=== PATIENT | female | born 1990 | race Caucasian/White ===

== ENCOUNTER 2018-11-15 06:37 | Inpatient (IN) | payer MEDICAID ==
[~2018-11-15] VITALS: Ht 157.5 cm; Wt 102.0 kg
[2018-11-15 06:54] VITALS: Ht 157.5 cm; Wt 102.0 kg
[2018-11-15 06:55] VITALS: BP 119/65; PULSE 78; RESP 20
--- NOTE | 2018-11-15 07:13 | TRIAGE ---
OB Triage Datetime Report Generated by CPN: 11/15/2018 07:13 Datetime: 11/15/2018 07:00 Time of Arrival: 11/15/2018 06:40 EGA: 39.0 Arrived By: Ambulatory Arrived From: Home Chief Complaint: UCS AT HOME SINCE 0500 Movement: Present Contractions: Regular Contractions: 3-5 Vaginal Bleeding: None Time Provider Notified: 11/15/2018 07:00 Provider Notified: DR ROSALES Initial Plan: EFM,CALL DR SALCEDA Datetime: 11/15/2018 06:59 Maternal Assessment Level of Consciousness: Keenly Alert, Responsive DTR's/Clonus: DTRs 2+; No Clonus Headache: Denies Blurred Vision: No Respiratory Effort: Unlabored; Regular Rhythm; Equal Expansion Breath Sounds, Left: Clear and Equal Breath Sounds, Right: Clear and Equal Nausea/Vomiting: Denies RUQ Epigastric Pain: Denies Facial Edema: None Temperature Route: Axillary Fall Risk Assessment History of Falling: (0) No Secondary Diagnosis: (0) No Ambulatory Aid: (0) Bedrest/Nurse Assist IV Therapy: (0) No Gait: (0) Normal/Bedrest/Immobile Mental Status: (0) Oriented to Own Ability Fall Score: 0 Fall Risk Score Definition: No Risk: No action required Datetime: 11/15/2018 06:57 Maternal Assessment Level of Consciousness: Keenly Alert, Responsive DTR's/Clonus: DTRs 2+ Headache: Denies Blurred Vision: No Nausea/Vomiting: Denies Facial Edema: None Labor Evaluation Frequency: 3-5 Monitor Mode: External Quality: Mild Pattern: Normal: <= 5 Contractions in 10 Minutes Resting Tone [place]: Relaxed Heart Rate FHR Baseline Rate: 125 Monitor Mode: External US FHR Baseline Changes: No Baseline Change Variability: Moderate 6-25 bpm Accelerations: 10X10 Decelerations: None Category: Category I Pain Assessment Pain Scale: 6 Pain Presence: Intermittent Pain Type: Contraction Pain Location: Abdomen Vaginal Exam Dilatation (cms): 4.5 Effacement (%): 80 Station: -2 Exam By: ZULEIKA LAU Membrane Status: Intact Vaginal Bleeding: None Cervix, Consistency: Soft Cervix, Position: Midposition Presentation 'A': Cephalic Datetime: 11/11/2018 20:30 Labor Evaluation Frequency: 2-7 Monitor Mode: External Duration (sec)2399: 30-60 Quality: Mild Pattern: Normal: <= 5 Contractions in 10 Minutes Resting Tone [place]: Relaxed Heart Rate FHR Baseline Rate: 150 Monitor Mode: External US FHR Baseline Changes: No Baseline Change Variability: Moderate 6-25 bpm Accelerations: 15X15 Decelerations: None Category: Category I Datetime: 11/11/2018 19:29 Contraction Comments: NO CONTRACTIONS Comments: OFF THE MONITOR Datetime: 11/11/2018 19:13 Assessment Type: Ongoing Assessment Maternal Assessment Level of Consciousness: Keenly Alert, Responsive DTR's/Clonus: DTRs 2+; No Clonus Headache: Denies Blurred Vision: No Respiratory Effort: Unlabored; Regular Rhythm; Equal Expansion Breath Sounds, Left: Clear and Equal Breath Sounds, Right: Clear and Equal Nausea/Vomiting: Denies RUQ Epigastric Pain: Denies Facial Edema: None Fall Risk Assessment History of Falling: (0) No Secondary Diagnosis: (0) No Ambulatory Aid: (0) Bedrest/Nurse Assist IV Therapy: (0) No Gait: (0) Normal/Bedrest/Immobile Mental Status: (0) Oriented to Own Ability Fall Score: 0 Fall Risk Score Definition: No Risk: No action required Datetime: 11/11/2018 18:53 Heart Rate FHR Baseline Rate: 135 Monitor Mode: External US Variability: Moderate 6-25 bpm Accelerations: 15X15 Decelerations: None Category: Category I Datetime: 11/11/2018 18:39 Pain Assessment Pain Scale: 6 Pain Presence: Intermittent Pain Type: Contraction Pain Location: Abdomen; Back Pain Relief Measures: Comfort Measures Datetime: 11/11/2018 18:38 Stage of : Labor Datetime: 11/11/2018 18:24 Labor Evaluation Frequency: 2 Monitor Mode: External Duration (sec)2399: 60-70 Quality: Moderate Resting Tone [place]: Relaxed Heart Rate FHR Baseline Rate: 135 Monitor Mode: External US Variability: Moderate 6-25 bpm Accelerations: 15X15 Decelerations: None Category: Category I Datetime: 11/11/2018 18:10 Vaginal Exam Dilatation (cms): 2.0 Effacement (%): 40 Station: -3 Exam By: MSalazar RN Datetime: 11/11/2018 18:09 Pain Assessment Pain Scale: 6 Pain Presence: Intermittent Pain Type: Cramping; Contraction Pain Location: Abdomen; Back Pain Relief Measures: Comfort Measures Datetime: 11/11/2018 18:00 Labor Evaluation Frequency: 1-3 Monitor Mode: External Duration (sec)2399: 60-70 Quality: Moderate Resting Tone [place]: Relaxed Heart Rate FHR Baseline Rate: 135 Variability: Moderate 6-25 bpm Accelerations: 15X15 Decelerations: None Category: Category I Datetime: 11/11/2018 17:39 Pain Assessment Pain Scale: 6 Pain Presence: Intermittent Pain Type: Cramping Pain Location: Abdomen Pain Goal: 3 Pain Relief Measures: Comfort Measures Datetime: 11/11/2018 17:30 Labor Evaluation Frequency: 2-4 Monitor Mode: External Duration (sec)2399: 50-70 Quality: Moderate Resting Tone [place]: Relaxed Heart Rate FHR Baseline Rate: 135 Monitor Mode: External US Variability: Moderate 6-25 bpm Accelerations: 15X15 Decelerations: None Category: Category I Datetime: 11/11/2018 17:00 Labor Evaluation Frequency: 2-4 Monitor Mode: External Duration (sec)2399: 60-90 Quality: Mild Resting Tone [place]: Relaxed Heart Rate FHR Baseline Rate: 135 Monitor Mode: External US Variability: Moderate 6-25 bpm Accelerations: 15X15 Decelerations: None Category: Category I Datetime: 11/11/2018 16:46 Maternal Assessment Level of Consciousness: Keenly Alert, Responsive Datetime: 11/11/2018 16:45 Pain Assessment Pain Scale: 0 Pain Presence: None/Denies Pain Goal: 3 Datetime: 11/11/2018 16:09 Pain Assessment Pain Scale: 0 Pain Presence: None/Denies Pain Goal: 3 Datetime: 11/11/2018 16:00 Labor Evaluation Frequency: irregular Monitor Mode: External Duration (sec)2399: 60 Quality: Mild Resting Tone [place]: Relaxed Heart Rate FHR Baseline Rate: 125 Monitor Mode: External US Variability: Moderate 6-25 bpm Accelerations: 15X15 Decelerations: None Category: Category I Datetime: 11/11/2018 15:32 Maternal Assessment Level of Consciousness: Keenly Alert, Responsive Pain Assessment Pain Scale: 0 Pain Presence: None/Denies Pain Goal: 3 Datetime: 11/11/2018 15:30 Labor Evaluation Frequency: 3-4 Monitor Mode: External Duration (sec)2399: 30-60 Quality: Mild Resting Tone [place]: Relaxed Heart Rate FHR Baseline Rate: 135 Monitor Mode: External US Variability: Moderate 6-25 bpm Accelerations: 15X15 Decelerations: None Category: Category I Datetime: 11/11/2018 15:00 Labor Evaluation Frequency: 2-3 Monitor Mode: External Duration (sec)2399: 30-70 Quality: Mild Resting Tone [place]: Relaxed Heart Rate FHR Baseline Rate: 135 Monitor Mode: External US Variability: Moderate 6-25 bpm Accelerations: None Decelerations: None Category: Category I Datetime: 11/11/2018 12:46 Labor Evaluation Frequency: 1-4 Monitor Mode: External Duration (sec)2399: 50-90 Quality: Mild Pattern: Normal: <= 5 Contractions in 10 Minutes Resting Tone [place]: Relaxed Heart Rate FHR Baseline Rate: 140 Monitor Mode: External US FHR Baseline Changes: No Baseline Change Variability: Moderate 6-25 bpm Accelerations: 15X15 Decelerations: None Category: Category I Pain Presence: None/Denies Datetime: 11/11/2018 12:10 Time of Arrival: 11/11/2018 11:00 EGA: 38.3 Arrived By: Ambulatory Arrived From: OB Triage Datetime: 11/11/2018 11:35 Assessment Type: Admission Assessment Vaginal Bleeding: None Maternal Assessment Level of Consciousness: Keenly Alert, Responsive DTR's/Clonus: DTRs 2+; No Clonus Headache: Denies Blurred Vision: No Respiratory Effort: Unlabored; Regular Rhythm; Equal Expansion Breath Sounds, Left: Clear and Equal Breath Sounds, Right: Clear and Equal Nausea/Vomiting: Denies RUQ Epigastric Pain: Denies Lower Extremities Edema: Bilateral Lower Extremities Degree: 1+ Upper Extremities Edema: Bilateral Upper Extremities Degree: 1+ Facial Edema: None Fall Risk Assessment History of Falling: (0) No Secondary Diagnosis: (0) No Ambulatory Aid: (0) Bedrest/Nurse Assist IV Therapy: (20) Yes Gait: (0) Normal/Bedrest/Immobile Mental Status: (0) Oriented to Own Ability Fall Score: 20 Fall Risk Score Definition: No Risk: No action required Pain Assessment Pain Scale: 0 Pain Presence: None/Denies Membrane Status: Intact Datetime: 11/11/2018 11:15 Stage of : Labor Datetime: 11/11/2018 10:00 Stage of : OB Triage Maternal Assessment Level of Consciousness: Keenly Alert, Responsive DTR's/Clonus: DTRs 1+ Headache: Denies Breath Sounds, Left: Clear and Equal Breath Sounds, Right: Clear and Equal Nausea/Vomiting: Denies RUQ Epigastric Pain: Denies Labor Evaluation Frequency: 2-5 Monitor Mode: External Duration (sec)2399: 40-60 Quality: Mild Pattern: Normal: <= 5 Contractions in 10 Minutes Resting Tone [place]: Relaxed Heart Rate FHR Baseline Rate: 145 Monitor Mode: External US Variability: Moderate 6-25 bpm Accelerations: 15X15 Decelerations: None Category: Category I Pain Assessment Pain Scale: 5 Pain Presence: Intermittent Pain Type: Contraction Pain Location: Back Pain Goal: 3 Membrane Status: Intact Datetime: 11/11/2018 09:42 Stage of : OB Triage Maternal Assessment Level of Consciousness: Keenly Alert, Responsive DTR's/Clonus: DTRs 1+ Headache: Denies Breath Sounds, Left: Clear and Equal Breath Sounds, Right: Clear and Equal Nausea/Vomiting: Denies RUQ Epigastric Pain: Denies Labor Evaluation Frequency: 2-3 Monitor Mode: External Duration (sec)2399: 40-60 Resting Tone [place]: Relaxed Heart Rate FHR Baseline Rate: 150 Monitor Mode: External US Variability: Moderate 6-25 bpm Accelerations: 15X15 Decelerations: None Category: Category I Pain Assessment Pain Scale: 5 Pain Presence: Intermittent Pain Type: Contraction Pain Location: Back Pain Goal: 3 Membrane Status: Intact Datetime: 11/11/2018 09:24 Stage of : OB Triage Maternal Assessment Level of Consciousness: Keenly Alert, Responsive DTR's/Clonus: DTRs 1+ Headache: Denies Blurred Vision: No Respiratory Effort: Unlabored Breath Sounds, Left: Clear and Equal Breath Sounds, Right: Clear and Equal Nausea/Vomiting: Denies RUQ Epigastric Pain: Denies Facial Edema: None Monitor Mode: External Resting Tone [place]: Relaxed Heart Rate FHR Baseline Rate: 150 Monitor Mode: External US Variability: Moderate 6-25 bpm Accelerations: 10X10 Decelerations: None Category: Category I Pain Assessment Pain Scale: 5 Pain Presence: Intermittent Pain Type: Contraction Pain Location: Back Pain Goal: 3 Membrane Status: Intact Datetime: 11/11/2018 09:12 EGA: 38.3 Datetime: 11/11/2018 09:10 Vaginal Exam Dilatation (cms): 4.0 Effacement (%): 70 Station: -3 Exam By: JUDI SEARS Vaginal Bleeding: None Cervix, Consistency: Soft Cervix, Position: Midposition Presentation 'A': Cephalic
[2018-11-15] MEDS ORDERED: METHYLERGONOVINE 0.2 MG INJ IM PRN (07:30)
[2018-11-15] MEDS ORDERED: CARBOPROST 250 MCG INJ IM PRN (07:30)
[2018-11-15] MEDS ORDERED: LIDOCAINE 1% (MPF) 30 ML INJ INJ PRN (07:30)
[2018-11-15] MEDS ORDERED: OXYTOCIN 30 UNITS/LR 500 ML IV PRN (07:30)
[2018-11-15] MEDS ORDERED: MISOPROSTOL 200 MCG TAB PR PRN (07:30)
[2018-11-15] MEDS ORDERED: OXYTOCIN 30 UNITS/LR 500 ML IV SCH ×3 (07:30→18:30)
[2018-11-15] MEDS ORDERED: AMPICILLIN 2 GM/NS (PMX) 100 ML IV ONE (07:30)
[2018-11-15] MEDS ORDERED: BUTORPHANOL 2 MG INJ IV PRN ×2 (07:30)
[2018-11-15] MEDS ORDERED: IBUPROFEN 600 MG TAB PO PRN (07:30)
[2018-11-15] MEDS: LACTATED RINGER'S 1,000 ML IV SCH ×3 (08:13→23:13)
[2018-11-15] MEDS ORDERED: FENTAnyl 2MCG/ML-ROPIV 0.2% 100 ML ONE (11:30)
--- NOTE | 2018-11-15 12:52 | PREAC ---
Date/Time of Note Date/Time of Note DATE: 11/15/18 TIME: 12:50 Anesthesia Eval and Record Evaluation Time Pre-Procedure Interview DATE: 11/15/18 TIME: 10:39 Age 28 Sex female NPO: 8 hrs Preoperative diagnosis iup @ 39 wks., , labor Planned procedure gabi Past Medical History Past Medical History: Includes : : (2), Para: (1), Gestational age: (39 wks.) Surgery & Anesthesia Issues No known issue Meds Anticoagulation: No Beta Elpidio within 24 hr: No Reason Beta Elpidio not given: Pt. not on B-Elpidio No Active Prescriptions or Reported Meds Current Medications Lactated Ringer's 1,000 ml @ 125 mls/hr Q8H IV Last administered on 11/15/18at 10:58; Admin Dose 125 MLS/HR; Start 11/15/18 at 07:13 Ampicillin 50 ml @ 100 mls/hr Q4H IV ; Start 11/15/18 at 11:30 Butorphanol Tartrate (Stadol) 1 mg Q2H PRN IV .PAIN SCALE 1-5; Start 11/15/18 at 07:30 Butorphanol Tartrate (Stadol) 2 mg Q2H PRN IV .PAIN SCALE 6-10; Start 11/15/18 at 07:30 Lidocaine (Xylocaine 1% (Mpf)) 30 ml ONCE PRN INJ .EPISIOTOMY; Start 11/15/18 at 07:30 Oxytocin/Lactated Ringer's 500 ml @ 500 mls/hr ONCE POST IV ; Start 11/15/18 at 07:30 Oxytocin/Lactated Ringer's 500 ml @ 125 mls/hr POST IV ; Start 11/15/18 at 07:30 Ibuprofen (Motrin) 600 mg ONCE PRN PO .PAIN 1-5; Start 11/15/18 at 07:30 Oxytocin/Lactated Ringer's 500 ml @ 0 mls/hr ONCE PRN IV .VAGINAL BLEEDING; Start 11/15/18 at 07:30 Methylergonovine Maleate (Methergine) 0.2 mg ONCE PRN IM .VAGINAL BLEEDING; Start 11/15/18 at 07:30 Carboprost Tromethamine (Hemabate) 250 mcg ONCE PRN IM .VAGINAL BLEEDING; Start 11/15/18 at 07:30 Misoprostol (Cytotec) 1,000 mcg ONCE PRN [place] .VAGINAL BLEEDING; Start 11/15/18 at 07:30 Meds reviewed: Yes Allergies Coded Allergies: No Known Drug Allergies (Verified Allergy, Unknown, 11/11/18) Allergies Reviewed: Yes Labs/Studies Labs Reviewed: Reviewed by anesthesiologist Result Diagram: 11/15/18 0740 Laboratory Tests 11/15/18 07:40 Blood Bank Test 11/15/18 07:40 Antibody Screen NEGATIVE Blood Type O POSITIVE Rh Immune Globulin Candidate NO test: Positive Studies: ECG (n/a), CXR (n/a) Pre-procedure Exam Last vitals Vital Signs Date Temp Pulse Resp B/P (MAP) Pulse Ox O2 O2 Flow FiO2 Time Delivery Rate 11/15/18 97.8 78 20 119/65 Room Air 06:55 (83) Airway: Adequate mouth opening, Adequate thyromental dist Mallampati: Mallampati II Teeth: Normal Lung: Normal Heart: Normal ASA Physical Status ASA physical status: 2 Emergency: E Planned Anesthetic Neuraxial: Epidural Planned Pain Management Epidural, Parenteral pain med, Local by surgeon Pre-operative Attestations Prior to commencing anesthesia and surgery, the patient was re-evaluated, there was verification of: *The patient's identity *The results of appropriate recent lab work and preoperative vital signs *The above evaluation not changing prior to induction *Anesthetic plan, risk benefits, alternative and complications discussed with patient/family; questions answered; patient/family understands, accepts and wishes to proceed. Back Office Medical Assistant used JOSH JUDD MD Nov 15, 2018 12:52
[2018-11-15] MEDS ORDERED: FENTAnyl 2MCG/ML-ROPIV 0.2% 100 ML BAG EPI SCH (13:00)
[2018-11-15] MEDS ORDERED: DIPHENHYDRAMINE 50 MG INJ IV PRN (13:00)
[2018-11-15] MEDS ORDERED: NALOXONE (0.4 MG/ML) INJ IV PRN (13:00)
[2018-11-15] MEDS ORDERED: ONDANSETRON 4 MG INJ IV PRN (13:00)
[2018-11-15] MEDS ORDERED: NALBUPHINE HCL (10 MG/1 ML) INJ IV PRN (13:00)
[2018-11-15] MEDS: AMPICILLIN 1 GM/NS (PMX) 50 ML IV SCH ×2 (15:55→20:01)
[2018-11-16] MEDS: AMPICILLIN 1 GM/NS (PMX) 50 ML IV SCH (00:13)
--- NOTE | 2018-11-16 03:47 | LDN ---
Date/Time of Note Date/Time of Note DATE: 11/16/18 TIME: 03:44 Delivery Summary Vacuum assisted vaginal delivery over one contraction for prolonged heart deceleration. Delivered a viable baby girl weighing 2875 grams or 6# 5 oz, 18.5" long, and with Apgars of 7/9. Weeks of Gestation 39w 1d Assisted Vaginal Delivery: Vacuum Placenta Delivered: Spontaneously Meconium: none Episiotomy: No Perineal laceration: 0 Laceration repair: 1st degree left labial laceration repaired with 3-0 chromic. Anesthesia type: Epidural Estimated blood loss: 200 Sponge & Needle done & correct: Yes All needle counts correct: Yes Any foreign bodies felt in the: No (vagina) Delivery Information Sex Sex: female Apgars 1 Minute: 7 5 Minute: 9 Suctioning Nose & mouth suctioned at buddy: Yes Delee suction performed: No Umbilical Cord Umbilical cord with: 3 Vessels Cord presentations: no nuchal cord Cord Blood was obtained: Yes Mother & Baby Disposition Disposition Mom & Baby to Maternity; Good: Yes Baby to NICU: Yes (for observation ) IVAN MARTINEZ MD Nov 16, 2018 03:47
[2018-11-16] MEDS ORDERED: OXYTOCIN 30 UNITS/LR 500 ML IV SCH (03:54)
[2018-11-16] MEDS ORDERED: LACTATED RINGER'S 1,000 ML IV* SCH (03:54)
--- NOTE | 2018-11-16 03:58 | HP ---
Date/Time of Note Date/Time of Note DATE: 11/16/18 TIME: 03:47 OB - History Hx of Present Free Text/Dictation 28 y.o. with an IUP at 39w came in labor with an initial exam of 60%/4 cm/-2/intact. Chief Complaint: Labor Estimated Due Date: Nov 22, 2018 : 2 Para: 1 Care: Good Care Ultrasounds: Normal mid trimester US Obstetrical Complications: None Medical Complications: None Other Concerns: Pt tested positive for chlamydia twice and she and her partner were treated twice. Pt tested early in positive for amphetamines and then was negative afterwards every time. PMHx: H/o depression- was on Lexapro prior to . PSHx: none. NKDA Past Family/Social History * Past Medical, Surgical, Family and Obstetric Histories reviewed from chart. Blood Type: O+ RPR/VDRL: Negative GBS Status: Unknown HBsAG: Negative OB Admission Exam Vital Signs Vital Signs Vital Signs Date Temp Pulse Resp B/P (MAP) Pulse Ox O2 O2 Flow FiO2 Time Delivery Rate 11/15/18 97.8 78 20 119/65 Room Air 06:55 (83) Physical Exam HEENT: WNL Heart: Rhythm Normal Lungs: Clear Abdomen: WNL Extremities: Normal Reflexes: Normal Cervical Dilatation: 4cm Effacement: 75% Station: -2 Membranes: Intact Amniotic Fluid: Clear Heart Rate: 140's Accelerations: Accelerations Present Decelerations: No Decelerations Contractions on Admission: < 5 Minutes Apart Intensity: Moderate Last 72 hours Lab Results CBC & BMP 11/15/18 07:40 OB Assessment/Plan Reason for admission: active labor Other Assessment: Unknown GBS status Plan: Expectant Management Other plan: Augmentation as needed. Antibiotic prophylaxis. IVAN MARTINEZ MD Nov 16, 2018 03:58
[2018-11-16] MEDS ORDERED: METHYLERGONOVINE 0.2 MG INJ IM PRN (04:00)
[2018-11-16] MEDS ORDERED: MISOPROSTOL 200 MCG TAB PR PRN (04:00)
[2018-11-16] MEDS ORDERED: OXYTOCIN 30 UNITS/LR 500 ML IV PRN (04:00)
[2018-11-16] MEDS ORDERED: LANOLIN HPA 1 PKT TOP PRN (04:00)
[2018-11-16] MEDS ORDERED: CARBOPROST 250 MCG INJ IM PRN (04:00)
[2018-11-16] MEDS ORDERED: BENZOCAINE 20% 56 ML SPRAY TOP PRN (04:00)
--- NOTE | 2018-11-16 04:21 | PAC ---
Date/Time of Note Date/Time of Note DATE: 11/16/18 TIME: 04:21 Post-Anesthesia Notes Post-Anesthesia Note Last documented vital signs Vital Signs Date Temp Pulse Resp B/P (MAP) Pulse Ox O2 O2 Flow FiO2 Time Delivery Rate 11/15/18 97.8 78 20 119/65 Room Air 06:55 (83) Activity: WNL Respiratory function: WNL Cardiovascular function: WNL Mental status: Baseline Pain reasonably controlled: Yes Hydration appropriate: Yes Nausea/Vomiting absent: Yes JOSH JUDD MD Nov 16, 2018 04:21
[2018-11-16 05:05] VITALS: BP 130/74; PULSE 94; RESP 18
[2018-11-16] MEDS: IBUPROFEN 600 MG TAB PO SCH ×4 (05:47→23:33)
[2018-11-16 08:00] VITALS: BP 110/58; PULSE 73; RESP 18
[2018-11-16] MEDS: HYDROCODONE/APAP (5/325) TAB PO PRN ×2 (08:37→16:08)
[2018-11-16 12:25] VITALS: BP 101/56; PULSE 76; RESP 18
[2018-11-16 16:00] VITALS: BP 114/56; PULSE 72; RESP 18
[2018-11-16 19:45] VITALS: BP 95/53; PULSE 73; RESP 18
[2018-11-17 03:37] VITALS: BP 117/65; PULSE 78; RESP 18
[2018-11-17] MEDS: IBUPROFEN 600 MG TAB PO SCH ×3 (05:59→18:39)
[2018-11-17 08:00] VITALS: BP 117/72; PULSE 66; RESP 20
[2018-11-17 15:26] VITALS: BP 111/69; PULSE 69; RESP 18
--- NOTE | 2018-11-17 16:08 | PN ---
Date/Time of Note Date/Time of Note DATE: 11/17/18 TIME: 16:07 Assessment/Plan VTE Prophylaxis Risk score (from Ns)>0 risk: 1 SCD applied (from Ns): No SCD contraindicated: low risk/ambulating Pharmacological prophylaxis: NA/contraindicated Pharm contraindication: low risk/ambulating Lines/Catheters [facility] Peripheral IV Assessment/Plan Assessment/Plan POST DAY 1 CHRONIC IRON DEFICIENCY ANEMIA HOME TOMORROW RETURN TO CLINIC IN 2 WEEKS CONTINUE WITH VITAMINS OD AND FERROUS SULFATE PO TID DIET ADVISED COUNSELED INSTRUCTED CALL OFFICE IF THERE IS ANY PROBLEMS OR CONCERN Result Diagram: 11/17/18627 Results 24hrs Laboratory Tests Test 11/17/18 06:28 11/17/18 06:45 White Blood Count 8.6 Red Blood Count 3.25 L Hemoglobin 9.4 L Hematocrit 28.7 L Mean Corpuscular Volume 88.3 Mean Corpuscular Hemoglobin 28.9 L Mean Corpuscular Hemoglobin Concent 32.8 Red Cell Distribution Width 12.7 Platelet Count 249 Mean Platelet Volume 10.1 Immature Granulocytes % 0.300 Neutrophils % 63.5 Lymphocytes % 27.1 Monocytes % 7.7 Eosinophils % 0.8 Basophils % 0.6 Nucleated Red Blood Cells % 0.0 Immature Granulocytes # 0.030 Neutrophils # 5.5 Lymphocytes # 2.3 Monocytes # 0.7 Eosinophils # 0.1 Basophils # 0.1 Nucleated Red Blood Cells # 0.0 Lab Scanned Report REFERENCE LAB Subjective 24 Hr Interval Summary Free Text/Dictation FEELS GOOD, GOOD URINE OUTPUT, GOOD BOWEL MOVEMENT Exam/Review of Systems Exam Vitals Vital Signs Date Temp Pulse Resp B/P (MAP) Pulse Ox O2 O2 Flow FiO2 Time Delivery Rate 11/17/18 98.3 69 18 111/69 Room Air 15:26 (83) Intake and Output 11/16/18 11/16/18 11/17/18 1515:00 23:00 07:00 IntakeIntake Total 75 ml BalanceBalance 75 ml Exam VITAL SIGNS STABLE: YES AFEBRILE: YES BREAST NOT ENGORGED, NON-TENDER, NO APPRECIABLE MASS: YES LUNGS CLEAR, NO RALES, WHEEZES, RHONCHI: YES SINUS RHYTHM WITHOUT MURMUR: YES ABDOMEN: NON-TENDER FUNDUS: BELOW UMBILICUS BOWEL SOUNDS: PRESENT UTERUS: FIRM INTACT PERINEUM: YES [place]: LIGHT DEEP TENDON REFLEXES: 0 EXTREMITIES: NO CALF TENDERNESS EDEMA SCALE: NONE Results Results 24hrs Laboratory Tests Test 11/17/18 06:28 11/17/18 06:45 White Blood Count 8.6 Red Blood Count 3.25 L Hemoglobin 9.4 L Hematocrit 28.7 L Mean Corpuscular Volume 88.3 Mean Corpuscular Hemoglobin 28.9 L Mean Corpuscular Hemoglobin Concent 32.8 Red Cell Distribution Width 12.7 Platelet Count 249 Mean Platelet Volume 10.1 Immature Granulocytes % 0.300 Neutrophils % 63.5 Lymphocytes % 27.1 Monocytes % 7.7 Eosinophils % 0.8 Basophils % 0.6 Nucleated Red Blood Cells % 0.0 Immature Granulocytes # 0.030 Neutrophils # 5.5 Lymphocytes # 2.3 Monocytes # 0.7 Eosinophils # 0.1 Basophils # 0.1 Nucleated Red Blood Cells # 0.0 Lab Scanned Report REFERENCE LAB Medications Medication Current Medications Ibuprofen (Motrin) 600 mg Q6 PO Last administered on 11/17/18at 11:47; Admin Dose 600 MG; Start 11/16/18 at 06:00 Acetaminophen/ Hydrocodone Bitart ([place] (5/325)) 1 tab Q4H PRN PO .PAIN 1-5 Last administered on 11/16/18at 16:08; Admin Dose 1 TAB; Start 11/16/18 at 04:00 Benzocaine (Dermoplast [place]) 1 spray BEDSIDE MEDICATION PRN TOP .HEMMORHOID/EPISIOTOMY PAIN Last administered on 11/16/18at 05:48; Admin Dose 1 SPRAY; Start 11/16/18 at 04:00 Lanolin (Lanolin Hpa) 1 applic BEDSIDE MEDICATION PRN TOP .NIPPLES Last administered on 11/16/18at 05:48; Admin Dose 1 APPLIC; Start 11/16/18 at 04:00 Diphtheria/ Tetanus/Acell Pertussis (Adacel) 0.5 ml ONCE ONCE IM* ; Start 11/18/18 at 09:00; Stop 11/18/18 at 09:01 Oxytocin/Lactated Ringer's 500 ml @ 0 mls/hr ONCE PRN IV .VAGINAL BLEEDING; Start 11/16/18 at 04:00 Methylergonovine Maleate (Methergine) 0.2 mg ONCE PRN IM .VAGINAL BLEEDING; Start 11/16/18 at 04:00 Carboprost Tromethamine (Hemabate) 250 mcg ONCE PRN IM .VAGINAL BLEEDING; Start 11/16/18 at 04:00 Misoprostol (Cytotec) 1,000 mcg ONCE PRN [place] .VAGINAL BLEEDING; Start 11/16/18 at 04:00 BENNY ROSALES MD Nov 17, 2018 16:08
[2018-11-17 20:00] VITALS: BP 110/58; PULSE 73; RESP 20
[2018-11-18] MEDS: IBUPROFEN 600 MG TAB PO SCH ×4 (00:22→18:38)
[2018-11-18 04:38] VITALS: BP 113/62; PULSE 71; RESP 20
[2018-11-18 08:29] VITALS: BP 91/54; PULSE 63; RESP 20
[2018-11-18] MEDS ORDERED: DIPHTH/TET/ACEL PERTUSS (ADULT) 0.5 ML VIAL IM* ONE (09:00)
[2018-11-18] MEDS: HYDROCODONE/APAP (5/325) TAB PO PRN (14:13)
[2018-11-18 16:56] VITALS: BP 119/57; PULSE 70; RESP 17
[2018-11-18 19:30] VITALS: BP 123/65; PULSE 78; RESP 19
--- NOTE | 2018-11-19 22:24 | DELSUM ---
Delivery Summary A-C Datetime Report Generated by CPN: 11/19/2018 22:24 DELIVERY PERSONNEL Pill Coater: Emerson,Ronda MATERNAL INFORMATION Delivery Anesthesia: Epidural Medications in Delivery: 30U PITOCIN WITH LR Delivery QBL (ml): 300 Placenta Cultured: No Maternal Complications: None LABOR SUMMARY EDC: 11/22/2018 00:00 No. Babies in Womb: 1 Attempted: No Labor Anesthesia: Epidural LABOR INFORMATION Reason for Induction: Not Applicable Onset of Labor: 11/15/2018 05:30 Complete Dilatation: 11/16/2018 02:49 Group B Beta Strep: Not Done Antibiotics # of Doses: AMP- 6 Antibiotics Time of Last Dose: 11/16/2018 00:13 Steroids Given: None Reason Steroids Not Administered: Not Applicable MEMBRANES Membranes Rupture Method: Artificial Rupture of Membranes: 11/16/2018 01:02 Length of Rupture (hr): 2.13 Amniotic Fluid Color: Clear Amniotic Fluid Amount: Moderate Amniotic Fluid Odor: None STAGES OF LABOR Stage 1 hr: 21 Stage 1 min: 19 Stage 2 hr: 0 Stage 2 min: 21 Stage 3 hr: 0 Stage 3 min: 2 Total Time in Labor hr: 21 Total Time in Labor min: 42 VAGINAL DELIVERY Episiotomy: None Laceration Extension: First Degree Laceration Type: None Other Laceration: left labial Laceration Repair: Yes Initial Vag Sponge Count: 10 Final Vag Sponge Count: 10 Initial Vag Sharps Count: 2 Final Vag Sharps Count: 2 Sponge Count Correct: Yes; Vaginal Sweep Performed Sharps Count Correct: Yes BABY A INFORMATION Delivery Date/Time: 11/16/2018 03:10 Method of Delivery: Vaginal Born in Route : No : N/A Forceps: N/A Vacuum Extraction: Successful Shoulder Dystocia : No SHOULDER DYSTOCIA BABY A Infant Delivery Date/Time: 11/16/2018 03:10 PRESENTATION/POSITION BABY A Presentation: Cephalic Cephalic Presentation: Vertex Vertex Position: Left Occipital Anterior Breech Presentation: N/A PLACENTA INFORMATION BABY A Placenta Delivery Time : 11/16/2018 03:12 Placenta Method of Delivery: Spontaneous Placenta Status: Delivered SCORES BABY A Heart Rate 1 min: >100 bpm Resp Effort 1 min: Good Cry Reflex Irritability 1 min: Cough/Sneeze/Pulls Away Muscle Tone 1 min: Some Flexion of Extrem Color 1 min: Blue/Pale Resuscitation Effort 1 min: Tactile Stimulation; Oxygen SCORE 1 MIN: 7 Heart Rate 5 min: >100 bpm Resp Effort 5 min: Good Cry Reflex Irritability 5 min: Cough/Sneeze/Pulls Away Muscle Tone 5 min: Active Motion Color 5 min: Body [place], Extremit Blue Resuscitation Effort 5 min: Tactile Stimulation; Oxygen SCORE 5 MIN: 9 Heart Rate 10 min: >100 bpm Resp Effort 10 min: Good Cry Reflex Irritability 10 min: Cough/Sneeze/Pulls Away Muscle Tone 10 min: Active Motion Color 10 min: Body [place], Extremit Blue Resuscitation Effort 10 min: Tactile Stimulation; Oxygen SCORE 10 MIN: 9 INFANT INFORMATION BABY A Gestational Age at Delivery: 39.1 Gestational Status: Full Term- 39- 40.6 Weeks Infant Outcome : Liveborn, with signs of life Infant Condition : Stable Sex: Female IDENTIFICATION/MEDS BABY A ID Band Location: Right Leg; Left Arm Sensor Location : Cord Clamp Vitamin K Given : Not Given Erythromycin Given: Not Given WEIGHT/LENGTH BABY A Infant Birthweight (gm): 2875 Weight (lb): 6 Weight (oz): 5 Infant Length (in): 18.50 Length (cm): 46.99 CORD INFORMATION BABY A No. Cord Vessels: 3 Nuchal Cord : N/A Cord Blood Taken: Yes Suction: Mouth; Nose
== END 2018-11-18 22:00 | disposition home or self-care (01) | DRG 807 ==
LOC: OBT 06:37 → L-D 06:38 → OBT 07:10 → PP1 11-16 05:10
PROVIDERS: ADMIT Obstetrics & Gynecology; ATTEND Obstetrics & Gynecology
PROC: 10D07Z6 Extraction of Products of Conception, Vacuum, Via Natural or Artificial Opening (ICD-10-PCS; principal; 2018-11-16)
PROC: 0HQ9XZZ Repair Perineum Skin, External Approach (ICD-10-PCS; 2018-11-16)
DX: O76 Abnormality in fetal heart rate and rhythm complicating labor and delivery (principal); O70.0 First degree perineal laceration during delivery; Z37.0 Single live birth; O66.5 Attempted application of vacuum extractor and forceps; Z3A.39 39 weeks gestation of pregnancy
CPT/HCPCS: 62322; 76818; 80307; 85025; 85610; 85730; 86592; 86850; 86900; 86901; 87340; 90715; 99464; G0463; J0290; J2590; J3010; J7120